=== PATIENT | male | born 1960 | race Caucasian/White ===

== ENCOUNTER 2020-03-23 09:03 | Emergency (ER) | payer OTHER, BC ==
[~2020-03-23] VITALS: Ht 188 cm; Wt 104.3 kg
[~2020-03-23 09:03] MED LIST: Voltaren100 GM TOP
[2020-03-23] MEDS ORDERED: AMLODIPINE BESYL5 MG PO (09:13)
[2020-03-23] MEDS ORDERED: ZOLOFT50 MG PO (09:13)
[2020-03-23] MEDS ORDERED: TRILEPTAL300 M2 PO (09:13)
[2020-03-23 10:15] LABS: Chloride (POC) 104 mmol/L (98-108); Creatinine (POC) 1.1 mg/dL (0.8-1.3); Glucose (ISTAT POC) 125 mg/dL (70-99); Potassium (POC) 3.8 mmol/L (3.5-5.5); Sodium (POC) 139 mmol/L (135-148); Total CO2 (POC) 22 mmol/L (21-32)
== END 2020-03-23 11:56 | disposition home or self-care (01) ==
LOC: ER 09:03
PROVIDERS: Emergency Medicine
DX: F32.9 Major depressive disorder, single episode, unspecified (principal); G40.909 Epilepsy, unspecified, not intractable, without status epilepticus; Z79.899 Other long term (current) drug therapy; Z88.5 Allergy status to narcotic agent; Z88.1 Allergy status to other antibiotic agents
CPT/HCPCS: 80047; 85014; 99284

== ENCOUNTER 2022-07-24 08:32 | Day surgery (SDC) | payer BC ==
[~2022-07-24] VITALS: Ht 185.4 cm; Wt 105.2 kg
[~2022-07-24 08:32] MED LIST changes: +AMLODIPINE BESYL5 MG PO; +TRILEPTAL300 M2 PO; +ZOLOFT50 MG PO
[2022-07-24] MEDS ORDERED: LATUDA20 M1 (08:53)
[2022-07-24] MEDS ORDERED: TELM20 (08:53)
[2022-07-24] MEDS ORDERED: EUTHYROX50 MCG (08:53)
== END 2022-07-24 10:40 | disposition home or self-care (01) ==
LOC: ORSCSDS 08:32
PROVIDERS: Surgery
PROC: 0DJD8ZZ Inspection of Lower Intestinal Tract, Via Natural or Artificial Opening Endoscopic (ICD-10-PCS; principal; 2022-07-24 09:45)
DX: Z12.11 Encounter for screening for malignant neoplasm of colon (principal); K64.8 Other hemorrhoids; G40.909 Epilepsy, unspecified, not intractable, without status epilepticus; I10 Essential (primary) hypertension; E03.9 Hypothyroidism, unspecified; Z79.899 Other long term (current) drug therapy; Z87.891 Personal history of nicotine dependence
CPT/HCPCS: J2001; J2704; J7120

== ENCOUNTER 2024-08-03 08:58 | Day surgery (SDC) | payer OTHER ==
[~2024-08-03] VITALS: Ht 188 cm; Wt 107.3 kg
[~2024-08-03 08:58] MED LIST changes: +EUTHYROX50 MCG; +LATUDA20 M1; +LATUDA40 M1 PO; +LEVSOD25 PO; +MULTI-VITAMIN1 EAC2 PO; +NS 500 ML IV ONE; +TELM20; +TELM80 PO; +propofoL 20 ML IV ONE
[2024-08-03] MEDS ORDERED: Aspir 8181 MG PO (09:40)
[2024-08-03] MEDS ORDERED: NS 1,000 ML IV ONE (09:51)
--- NOTE | 2024-08-03 09:53 | NUR ---
08/03/24 0953 MARYBETH MARTINEZ RESTING ON GURNEY, RAILS UP, BRAKES LOCKED, CALL LIGHT IN REACH.
[2024-08-03 11:08] VITALS: BP 111/76
--- NOTE | 2024-08-03 11:31 | NUR ---
08/03/24 1131 Sirena Phillips D/Bhavik INSTRUCTIONS GIVEN TO PT, UNDERSTANDING VERBALIZED. PT DENIES PAIN/NAUSEA, TOLERATING APPLE JUICE W/O COMPLAINT. PT HAS ALL BELONGINGS RETURNED TO HIM. PT STATES READINESS TO GO HOME. PT AMBULATED TO [facility] EN[facility] WHERE HE WILL BE DRIVEN HOME BY IN PRIVATE VEHICLE. STEADY GAIT NOTED UPON AMBULATION. NO VISIBLE SIGNS OF DISTRESS NOTED.
== END 2024-08-03 11:30 | disposition home or self-care (01) ==
LOC: ORSCSDS 08:58
PROVIDERS: Orthopaedic Surgery
PROC: 0JBK0ZX Excision of Left Hand Subcutaneous Tissue and Fascia, Open Approach, Diagnostic (ICD-10-PCS; principal; 2024-08-03 10:30)
DX: R22.32 Localized swelling, mass and lump, left upper limb (principal); E03.9 Hypothyroidism, unspecified; G40.909 Epilepsy, unspecified, not intractable, without status epilepticus; F17.210 Nicotine dependence, cigarettes, uncomplicated; Z79.82 Long term (current) use of aspirin; Z79.899 Other long term (current) drug therapy; Z86.73 Personal history of transient ischemic attack (TIA), and cerebral infarction without residual deficits
CPT/HCPCS: 88305; J2704; J7040